=== PATIENT | male | born 2000 | race Caucasian/White ===

== ENCOUNTER → 2022-04-15 | Emergency (ER) | payer BC ==
[~2022-04-15] VITALS: Ht 182.9 cm; Wt 73.5 kg
[~2022-04-15] MED LIST: DIPH50CA4 PO; FAMOTIDINE (20 MG) 20 MG TABLET ONE; PRED50TA PO; diphenhydrAMINE HCL 50 MG CAPSULE ONE; predniSONE 20 MG TABLET ONE
--- NOTE | 2022-04-15 11:10 | NUR ---
C/O HIVES AND BODY ACHES X 4 DAYS.
[2022-04-15] MEDS: diphenhydrAMINE HCL 50 MG CAPSULE PO ONE (11:30)
[2022-04-15] MEDS: FAMOTIDINE (20 MG) 20 MG TABLET PO ONE (11:30)
[2022-04-15] MEDS: predniSONE 10 MG TABLET PO ONE (11:30)
--- NOTE | 2022-04-15 11:40 | NUR ---
BLOOD SAMPLE OBTAINED SENT TO LAB
[2022-04-15 12:15] LABS: BASOPHILS % (AUTO) 0.1 % (0.0-2.0); EOSINOPHILS % (AUTO) 0.2 % (0.0-6.0); HEMATOCRIT 41 % (39-51); HEMOGLOBIN 13.1 g/dL (13.5-17.5); LYMPHOCYTES # (AUTO) 1.2 K/uL (0.8-4.8); LYMPHOCYTES % (AUTO) 8.4 % (20.0-44.0); MEAN CORPUSCULAR HGB CONC 32 g/dl (31.0-36.0); MEAN CORPUSCULAR VOLUME 78 fL (80-96); MONOCYTES # (AUTO) 0.7 K/uL (0.1-1.30); MONOCYTES % (AUTO) 5.1 % (2.0-12.0); NEUTROPHILS # (AUTO) 12.1 K/uL (1.8-8.9); NEUTROPHILS % (AUTO) 86.2 % (43.0-81.0); PLATELET COUNT (AUTO) 161 K/uL (150-450); RED BLOOD CELL COUNT(AUTO) 5.28 MIL/uL (4.5-6.0)
[2022-04-15 12:28] LABS: CALCIUM, SERUM 8.3 mg/dL (8.5-10.1); CREATININE 0.9 mg/dL (0.6-1.3)
--- NOTE | 2022-04-15 13:31 | NUR ---
Patient discharged to home in stable condition. Written and verbal after care instructions given. Patient verbalizes understanding of instruction.
[2022-04-15 13:32] VITALS: BP 133/69
== END | disposition home or self-care (01) ==
LOC: ER 10:57
DX: L50.9 Urticaria, unspecified (principal)
CPT/HCPCS: 99284; 85025; 80048; 36415; Q0163; J7512 ×2